=== PATIENT | female | born 1970 | race Hispanic/Latino ===

== ENCOUNTER → 2018-08-30 | Day surgery (SDC) | payer OTHER ==
[~2018-08-30] MED LIST: ALBUTEROL0.63 MG/3 INH; FENTANYL CITRATE/PF 100MCG/2 ML INJ ONE; FLONASE; LASIX20 MG PO; MIDAZOLAM HCL 2 MG/2 ML VIAL ONE; NEXIUM40 MG PO; POTASSIUM CHLO20 ME1 PO; PROPOFOL IV EMULSION 10 MG/ML 50 ML VIAL ONE; SUCRALFATE1 GM PO; VIT D
--- OUTSIDE RECORDS SUMMARY | 2018-08-30 07:12 | XMS REPORT | Clinical Summary ---
Author Author [facility] Organization [facility] Address Unknown Phone Unavailable Care Team Providers Care Electronic Publisher Name Role Phone Elias Su MD PCP Unavailable Allergies Comments Active Allergy Reactions Severity Noted Date "Made me become violent, had to be sedated." Ketorolac Other (See 07/21/2017 Comments) Tramadol Rash Low 07/21/2017 Medications End Date Status Medication Sig Dispensed Refills Start Date Active potassium chloride Take 10 mEq 0 (KLOR-CON M10) 10 MEQ CR by mouth 2 tablet (two) times a day. Active furosemide (LASIX) 20 mg Take 20 mg by 0 tablet mouth daily. Active metFORMIN (GLUCOPHAGE) Take 500 mg 0 500 mg tablet by mouth daily with breakfast. 01/29/2019 Active furosemide (LASIX) 20 mg Take 1 tablet 7 tablet 0 tablet (20 mg total) 8 by mouth daily. 01/29/2019 Active potassium chloride Take 1 tablet 7 tablet 0 (K-DUR,KLOR-CON) 10 MEQ (10 mEq 8 CR tablet total) by mouth 2 (two) times a day. 01/28/2018 Discontinued metoclopramide HCl 10 mg Take 10 mg by 0 tablet,disintegrating mouth 4 (four) times a day. 06/22/2018 naproxen (NAPROSYN) 500 Take 1 tablet 60 tablet 0 MG tablet (500 mg 8 total) by mouth 2 (two) times a day with meals for 30 days. Active Problems Problem Noted Date Acute appendicitis 01/27/2018 Encounters Care Team Description Date Type Specialty Baldomero Garcia DO Abrasion of right knee, initial encounter (Primary Dx); Fall, initial encounter 05/23/2018 Emergency Emergency Medicine Cisco Walton MD 01/27/2018 Anesthesia General Surgery Event Jose Alfredo Winkler MD Appendectomy, Laparoscopic 01/27/2018 Surgery General Surgery Tej Walter MD Roberts, Matthew Thomas, DO Bavare, Arusha Amod, MD Acute appendicitis, unspecified acute appendicitis type (Primary Dx) 01/27/2018 [facility] General Surgery - Encounter 01/28/2018 after 08/29/2017 Immunizations Name Dates Previously Given Next Due Tdap 05/23/2018 Family History Medical History Relation Name Comments Heart murmur Brother Bladder Cancer Father Hypertension Mother Hyperlipidemia Sister Relation Name Status Comments Brother Father Mother Alive Sister Social History Date Tobacco Use Types Packs/Day Years Used Never Smoker Smokeless Tobacco: Never Used Alcohol Use Drinks/Week oz/Week Comments No Sex Assigned at Date Recorded Not on file Industry Job Start Date Occupation Not on file Not on file Not on file Travel End Travel History Travel Start No recent travel history available. Last Filed Vital Signs Time Taken Vital Sign Reading 05/23/2018 1:[address] [employer] [employer] Blood Pressure 128/79 05/23/2018 1:[address] [employer] Pulse 76 05/23/2018 11:30 AM [employer] [employer] Temperature 36.8 C (98.2 F) 05/23/2018 1:[address] [employer] [employer] Respiratory Rate 18 05/23/2018 1:[address] [employer] [employer] Oxygen Saturation 99% - Inhaled Oxygen - Concentration 05/23/2018 11:[address] [employer] [employer] Weight 102 kg (225 lb) 05/23/2018 11:[address] [employer] [employer] Height 154.9 cm (5' 1") 05/23/2018 11:[address] [employer] Body Mass Index 42.51 Plan of Treatment Health Maintenance Due Date Last Done Comments CERVICAL CANCER SCREENING 1993 INFLUENZA VACCINE 02/09/2018 Procedures Comments Procedure Name Priority Date/Time Associated Diagnosis XR TIBIA FIBULA 2 VW STAT 05/23/2018 RIGHT 12:56 [address] [employer] [employer] XR HIPS BILATERAL 2 VIEWS STAT 05/23/2018 12:[address] [employer] [employer] XR ANKLE 3+ VW RIGHT STAT 05/23/2018 12:[address] [employer] [employer] XR KNEE 4+ VW RIGHT STAT 05/23/2018 12:[address] [employer] [employer] POC GLUCOSE Routine 01/28/2018 8:41 PM CDT POC GLUCOSE Routine 01/28/2018 6:33 PM CDT POC GLUCOSE Routine 01/28/2018 11:14 AM CDT ZZESTIMATED GFR Routine 01/28/2018 6:57 AM CDT HC COMPLETE BLD COUNT Routine 01/28/2018 W/AUTO DIFF 6:57 AM CDT HEMOGLOBIN A1C Routine 01/28/2018 6:57 AM CDT LIPID PANEL Routine 01/28/2018 6:57 AM CDT BASIC METABOLIC PANEL Routine 01/28/2018 6:57 AM CDT POC GLUCOSE Routine 01/28/2018 6:14 AM CDT URINE CULTURE Routine 01/27/2018 11:55 PM CDT URINALYSIS SCREEN AND Routine 01/27/2018 MICROSCOPY, WITH REFLEX 11:52 PM CDT TO CULTURE POC GLUCOSE Routine 01/27/2018 9:47 PM CDT SURGICAL PATHOLOGY Routine 01/27/2018 REQUEST 2:53 PM CDT POC GLUCOSE Routine 01/27/2018 2:04 PM CDT ME AN ELECTIVE Routine 01/27/2018 END[address]RACHEAL AIRWAY 1:04 PM CDT Procedure Note - Cisco Walton MD - 01/27/2018 1:04 PM CDT Airway Performed by: CISCO WALTON Authorized by: CISCO WALTON Location: OR Urgency: Elective Difficult Airway: Yes Anesthesio logist: CISCO WALTON Performed by: anesthesio logist Preoxygena marylou with 100% O2: Yes Mask Ventilatio n: Easy mask Final Airway Type: Endotrache al airway Final Endotrache al Airway: ETT Cuffed: Yes Technique Used: Direct laryngosco py Insertion Site: Oral Blade Type: Remberto Laryngosco pe Blade/Vide olaryngosc ope Blade Size: 3 ETT Size (mm): 7.0 Cuff at minimum occlusion pressure: Yes Measured from: Lips ETT to Lips (cm): 22 Placement Verified by: CO2 detection, direct visualizat ion and equal breath sounds Laryngosco pic view: Grade IIb - view of arytenoids or posterior of glottis only Rapid Sequence Induction (RSI): No Modified RSI: No Number of Attempts at Approach: 1 CT ABDOMEN PELVIS W STAT 01/27/2018 CONTRAST 9:23 AM CDT BILIRUBIN DIRECT STAT 01/27/2018 8:15 AM CDT ZZESTIMATED GFR STAT 01/27/2018 8:15 AM CDT HCG QUALITATIVE, SERUM STAT 01/27/2018 SCREEN 8:15 AM CDT LIPASE LEVEL STAT 01/27/2018 8:15 AM CDT COMPREHENSIVE METABOLIC STAT 01/27/2018 PANEL 8:15 AM CDT CBC WITH PLATELET AND STAT 01/27/2018 DIFFERENTIAL 8:15 AM CDT after 08/29/2017 Results * XR Tibia Fibula 2 Vw Right (05/23/2018 12:[address] [employer] [employer]) Narrative Performed At EXAMINATION:XR TIBIA FIBULA 2 VW RIGHT [facility] CLINICAL HISTORY:fallleg pain COMPARISON:None. IMPRESSION: 1.2 view evaluation of the right tibia and fibula demonstrates no evidence to suggest an acute fracture. Alignment is normal and articulation is intact. [facility]-[id number] Procedure Note Hm Interface, Radiology Results Incoming - 05/23/2018 1:19 [address] [employer] [employer] EXAMINATION: XR TIBIA FIBULA 2 VW RIGHT CLINICAL HISTORY: fall leg pain COMPARISON: None. IMPRESSION: 1. 2 view evaluation of the right tibia and fibula demonstrates no evidence to suggest an acute fracture. Alignment is normal and articulation is intact. [facility]-[id number] Performing Organization Address City/State/Zipcode Phone Number [facility] [address] [place] [address] * XR Hips Bilateral 2 Views (05/23/2018 12:56 PM [employer] [employer]) Narrative Performed At EXAMINATION:XR HIPS BILATERAL 2 VIEWS [facility] CLINICAL HISTORY:fall COMPARISON:None. IMPRESSION: 1.The pelvic ring is intact. The hips are symmetric in alignment with mild joint space narrowing and articular sclerosis. Pubic symphysis and sacroiliac joints are patent. No evidence to suggest an acute fracture. [facility]-[id number] Procedure Note Interface, Radiology Results Incoming - 05/23/2018 1:24 PM [employer] [employer] EXAMINATION: XR HIPS BILATERAL 2 VIEWS CLINICAL HISTORY: fall COMPARISON: None. IMPRESSION: 1. The pelvic ring is intact. The hips are symmetric in alignment with mild joint space narrowing and articular sclerosis. Pubic symphysis and sacroiliac joints are patent. No evidence to suggest an acute fracture. [facility]-[id number] Performing Organization Address [facility] HospitalSp[facility] Medical Holdingme Phone Number [facility] [address] [place] [address] * XR Ankle 3+ Vw Right (05/23/2018 12:55 PM [employer] [employer]) Narrative Performed At Examination: XR ANKLE 3VW RIGHT [facility] Clinical history: fallankle pain Comparison: None Impression: 1.There is no fracture or acute osseous pathology. 2. The ankle mortise is within normal limits. [facility]-[id number] Procedure Note Interface, Radiology Results Incoming 05/23/2018 1:06 [address] [employer] [employer] Examination: XR ANKLE 3 VW RIGHT Clinical history: fall ankle pain Comparison: None Impression: 1. There is no fracture or acute osseous pathology. 2. The ankle mortise is within normal limits. [facility]-[id number] Performing Organization Address [facility] Phone Number [facility] [address] [place] [address] * XR Knee 4+ Vw Right (05/23/2018 12:54 PM [employer] [employer]) Narrative Performed At EXAMINATION:XR KNEE 4VW RIGHT [facility] CLINICAL HISTORY:fallknee injury COMPARISON:None. IMPRESSION: 1.There is no evidence of right knee fracture, dislocation, or joint effusion. Bone mineralization is normal. [facility]-[id number] Procedure Note Interface, Radiology Results Incoming - 05/23/2018 1:19 PM [employer] [employer] EXAMINATION: XR KNEE 4 VW RIGHT CLINICAL HISTORY: fall knee injury COMPARISON: None. IMPRESSION: 1. There is no evidence of right knee fracture, dislocation, or joint effusion. Bone mineralization is normal. [facility]-[id number] Performing Organization Address [facility] Phone Number [facility] [address] [place] [address] * POC glucose (01/28/2018 8:41 PM CDT) Only the most recent of 6 results within the time period is included. POC glucose 167 (H) 65 - 100 mg/dL [facility] [place] DEPARTMENT OF Comment: PATHOLOGY AND Meter ID: [id number] GENOMIC MEDICINE Storekeeper Helper: Lilly Hester Performing Organization Address City/[facility] Hospitalcode Phone Number [address] [place] [phone] PATHOLOGY AND GENOMIC MEDICINE * Estimated GFR (01/28/2018 6:57 AM CDT) Only the most recent of 2 results within the time period is included. GFR Non Af Amer >90 mL/min/1.73 m2 [facility] [place] DEPARTMENT OF PATHOLOGY AND GENOMIC MEDICINE GFR Af Amer >90 mL/min/1.73 m2 [facility] [place] DEPARTMENT OF Comment: PATHOLOGY AND Chronic kidney disease: <60 GENOMIC MEDICINE mL/min/1.73m2 Kidney failure: <15 mL/min/1.73m2 The estimated GFR is calculated from the IDMS-traceable Modification of Diet in Renal Disease Equation. The accuracy of the calculation is poor when the creatinine is normal. Calculated values >90 mL/min/1.73m2 are not reported. This equation has not been validated in children (<18 years), women, the elderly (>70 years), or ethnic groups other than Caucasians and Americans. Specimen Plasma specimen Performing Organization Address City/State/[facility] Hospitalcode Phone Number [address] [place] [address] PATHOLOGY AND [employer] MEDICINE * CBC with platelet and differential (01/28/2018 6:57 AM CDT) Only the most recent of 2 results within the time period is included. WBC 7.5 4.2 - 11.0 k/uL [facility] [place] DEPARTMENT OF PATHOLOGY AND GENOMIC MEDICINE RBC 4.20 4.04 - 5.86 m/uL [facility] [place] DEPARTMENT OF PATHOLOGY AND GENOMIC MEDICINE HGB 12.7 11.5 - 15.3 g/dL [facility] [place] DEPARTMENT OF PATHOLOGY AND GENOMIC MEDICINE HCT 39.3 34.0 - 45.0 % [facility] [place] [place] DEPARTMENT OF PATHOLOGY AND GENOMIC MEDICINE MCV 93.6 80.0 - 98.0 fL [facility] [place] DEPARTMENT OF PATHOLOGY AND GENOMIC MEDICINE MCH 30.2 27.0 - 34.0 pg [facility] [place] [place] DEPARTMENT OF PATHOLOGY AND GENOMIC MEDICINE MCHC 32.3 31.5 - 36.5 g/dL [facility] [place] DEPARTMENT OF PATHOLOGY AND GENOMIC MEDICINE RDW - SD 43.8 37.0 - 51.0 fL [facility] [place] DEPARTMENT OF PATHOLOGY AND GENOMIC MEDICINE MPV 10.5 (H) 7.4 - 10.4 fL [facility] [place] DEPARTMENT OF PATHOLOGY AND GENOMIC MEDICINE Platelet count 283 150 - 400 k/uL [facility] [place] [place] DEPARTMENT OF PATHOLOGY AND GENOMIC MEDICINE Nucleated RBC 0.00 /100 WBC [facility] [place] [place] DEPARTMENT OF PATHOLOGY AND GENOMIC MEDICINE Neutrophils 73.2 (H) 36.0 - 66.0 % [facility] [place] [place] DEPARTMENT OF PATHOLOGY AND GENOMIC MEDICINE Lymphocytes 17.2 (L) 24.0 - 44.0 % [facility] [place] [place] DEPARTMENT PATHOLOGY AND GENOMIC MEDICINE Monocytes 7.2 (H) 0.0 - 6.0 % [facility] [place] [place] DEPARTMENT OF PATHOLOGY AND GENOMIC MEDICINE Eosinophils 1.5 0.0 - 6.0 % [facility] PATHOLOGY AND GENOMIC MEDICINE Basophils 0.4 0.0 - 1.2 % [facility] [place] [place] DEPARTMENT PATHOLOGY AND GENOMIC MEDICINE Immature granulocytes 0.5 0.0 - 1.0 % [facility] PATHOLOGY AND GENOMIC MEDICINE Specimen Blood Performing Organization Address City/[facility]/Zipcode Phone Number [place] [phone] PATHOLOGY AND GENOMIC MEDICINE * Hemoglobin A1c (01/28/2018 6:57 AM CDT) Hemoglobin A1C 5.5 4.0 - 6.0 % [facility] [place] [place] DEPARTMENT OF Comment: PATHOLOGY AND GENOMIC MEDICINE Less than 6% - Goal of therapy for Type II Diabetes Less than 7%-Goal of therapy for Type I Diabetes Less than 8%-Accepta ble control for Type I or Type II Diabetes Greater than 8%-Unacceptabl e control; action indicated. ([id number]) Specimen Blood Performing Organization Address City/[facility]/[place] [address] PATHOLOGY AND [employer] [facility] * Lipid panel (01/28/2018 6:57 AM CDT) Cholesterol 159 0 - 199 mg/dL [facility] [place] [place] DEPARTMENT OF PATHOLOGY AND GENOMIC MEDICINE Triglycerides 126 0 - 149 mg/dL [facility] [place] DEPARTMENT OF PATHOLOGY AND GENOMIC MEDICINE HDL cholesterol 32 (L) 40 - 9,999 mg/dL [facility] [place] DEPARTMENT OF PATHOLOGY AND GENOMIC MEDICINE LDL cholesterol 112 (H)Comment: Result 0 - 99 mg/dL [facility] [place] DEPARTMENT OF obtained by direct LDL PATHOLOGY AND measurement GENOMIC MEDICINE Lipid panel See below [facility] [place] [place] DEPARTMENT OF interpretation Comment: PATHOLOGY AND Total Cholesterol GENOMIC MEDICINE (mg/dL) LDL Cholesterol (mg/dL) <200 Desirable <100 Optimal 200-239Borderline -etso442-2 29Near or above optimal >=240High 130-159Borderline- high 160-189High >=190Very high HDL Cholesterol (mg/dL) Triglycerides (mg/dL) <40Low <150 Normal >=60 High 150-199Borderline- high 200-499High >=500Very high Risk Catergories that modify LDL goals. Risk Catergories LDL goal (mg/dL) CHD and CHD risk equivalent <100 (10-year risk >20%) Multiple (2+) risk factors <130 (10-year risk=<20%) 0-1 risk factors <160 (<10-year risk) Defining levels of lipids in metabolic syndrome Triglycerides >=150 mg/dL HDL Cholesterol Men <40 mg/dL Women <50 mg/dL Non-HDL cholesterol is a second target for therapy in persons with high triglycerides (>=200 mg/dL) Specimen Plasma specimen Performing Organization Address City/State/Zipcode Phone Number [place] [phone] [place] [address] PATHOLOGY AND GENOMIC MEDICINE * Basic metabolic panel (01/28/2018 6:57 AM CDT) Sodium 141 135 - 150 mEq/L [facility] [place] [place] DEPARTMENT OF PATHOLOGY AND GENOMIC MEDICINE Potassium 3.6 3.5 - 5.0 mEq/L [facility] [place] [place] DEPARTMENT OF PATHOLOGY AND GENOMIC MEDICINE Chloride 105 98 - 112 mEq/L [facility] [place] [place] DEPARTMENT OF PATHOLOGY AND GENOMIC MEDICINE CO2 27 24 - 31 mmol/L [facility] [place] DEPARTMENT OF PATHOLOGY AND GENOMIC MEDICINE Anion gap 9@ANIO 7 - 15 mEq/L [facility] [place] [place] DEPARTMENT OF PATHOLOGY AND GENOMIC MEDICINE BUN 6 (L) 7 - 18 mg/dL [facility] [place] [place] DEPARTMENT OF PATHOLOGY AND GENOMIC MEDICINE Creatinine 0.60 0.50 - 0.90 mg/dL [facility] [place] [place] DEPARTMENT OF PATHOLOGY AND GENOMIC MEDICINE Glucose 112 (H) 65 - 100 mg/dL [facility] [place] [place] DEPARTMENT OF PATHOLOGY AND GENOMIC MEDICINE Calcium 8.3 8.3 - 10.2 mg/dL [facility] [place] [place] DEPARTMENT OF PATHOLOGY AND GENOMIC MEDICINE Specimen Plasma specimen Performing Organization Address City/[facility] Phone Number [facility] [address] [place] [address] PATHOLOGY AND GENOMIC MEDICINE * Urine culture (01/27/2018 11:55 PM CDT) Urine culture SEE COMMENTComment: [facility] [place] [place] DEPARTMENT OF Bacteriuria screen negative. PATHOLOGY AND GENOMIC MEDICINE Performing Organization Address [facility] Hospitalcode Phone Number [place] [address] [place] [address] PATHOLOGY AND GENOMIC MEDICINE * Urinalysis screen and microscopy, with reflex to culture (01/27/2018 11:52 PM CDT) Specimen site Clean catch [facility] [place] [place] DEPARTMENT OF PATHOLOGY AND GENOMIC MEDICINE Color, UA Straw [facility] [place] [place] DEPARTMENT OF PATHOLOGY AND GENOMIC MEDICINE Appearance, UA Clear [facility] [place] [place] DEPARTMENT OF PATHOLOGY AND GENOMIC MEDICINE Specific gravity, UA 1.012 1.001 - 1.035 [facility] [place] [place] DEPARTMENT OF PATHOLOGY AND GENOMIC MEDICINE pH, UA 5.0 5.0 - 8.5 [facility] [place] [place] DEPARTMENT OF PATHOLOGY AND GENOMIC MEDICINE Protein, UA Negative Negative [facility] [place] [place] DEPARTMENT OF PATHOLOGY AND GENOMIC MEDICINE Glucose, UA Negative Negative [facility] [place] [place] DEPARTMENT OF PATHOLOGY AND GENOMIC MEDICINE Ketones, UA Negative Negative [facility] [place] [place] DEPARTMENT OF PATHOLOGY AND GENOMIC MEDICINE Bilirubin, UA Negative Negative [facility] [place] [place] DEPARTMENT OF PATHOLOGY AND GENOMIC MEDICINE Blood, UA Moderate (A) Negative [facility] [place] [place] DEPARTMENT OF PATHOLOGY AND GENOMIC MEDICINE Nitrite, UA Negative Negative [facility] [place] [place] DEPARTMENT OF PATHOLOGY AND GENOMIC MEDICINE Urobilinogen, UA Negative <2.0 [facility] [place] [place] DEPARTMENT OF PATHOLOGY AND GENOMIC MEDICINE Leukocyte esterase, UA Negative Negative [facility] [place] [place] DEPARTMENT OF PATHOLOGY AND GENOMIC MEDICINE Epithelial cells, UA Many /HPF [facility] [place] [place] DEPARTMENT OF PATHOLOGY AND GENOMIC MEDICINE WBC, UA 2 0 - 5 /HPF [facility] [place] [place] DEPARTMENT OF PATHOLOGY AND GENOMIC MEDICINE RBC, UA 19 (H) 0 - 5 /HPF [facility] [place] [place] DEPARTMENT OF PATHOLOGY AND GENOMIC MEDICINE Bacteria, UA None seen None seen [facility] [place] [place] DEPARTMENT OF PATHOLOGY AND GENOMIC MEDICINE Yeast, UA None seen [facility] [place] [place] DEPARTMENT OF PATHOLOGY AND GENOMIC MEDICINE Yeast with pseudohyphae, None seen [facility] [place] [place] DEPARTMENT OF PATHOLOGY AND GENOMIC MEDICINE Specimen Urine Performing Organization Address City/State/Zipcode Phone Number [facility] [address] [place] [address] PATHOLOGY AND GENOMIC MEDICINE * Surgical pathology request (01/27/2018 2:53 PM CDT) [facility] [place] [place] DEPARTMENT OF PATHOLOGY AND GENOMIC MEDICINE Surgical pathology report See link below for PDF Lab [facility] [place] [place] DEPARTMENT OF Report PATHOLOGY AND GENOMIC MEDICINE Result status This is Final Report to [facility] [place] [place] DEPARTMENT OF [id number] PATHOLOGY AND GENOMIC MEDICINE Performing Organization Address City/State/Zipcode Phone Number [facility] [address] [place] [address] PATHOLOGY AND GENOMIC MEDICINE * CT Abdomen Pelvis W Contrast (01/27/2018 9:23 AM CDT) Narrative Performed At EXAMINATION:CT ABDOMEN PELVIS W CONTRAST [facility] CLINICAL HISTORY:Abdominal pain. TECHNIQUE: Multi-detector computed axial tomography (CAT) of the abdomen and pelvis was performed with IV iodinated contrast. Sagittal and coronal computerized reformatted images were created at a workstation and archived for review. DOSE REDUCTION: CT imaging was performed with iterative reconstruction technique and/or automated exposure control to reduce radiation dose. COMPARISON:CT abdomen and pelvis May 28, 2016. IMPRESSION: 1.There are findings concerning for tip appendicitis. Clinical correlation is recommended. FINDINGS: ABDOMEN: 2.9 cm cyst of the posterior interpolar right kidney. Mild cortical scarring of the kidneys. Liver, spleen, pancreas, and adrenals are unremarkable. Gallbladder is normal and the pancreaticobiliary system is nondistended. The distal 1.7 cm of the appendix is thickened measuring 9 mm, and there is faint periappendiceal fat stranding. Findings are concerning for tip appendicitis in the appropriate clinical setting. Recommended. Remainder of the GI tract is unremarkable. Aorta is nonaneurysmal. Superior mesenteric artery and portal venous system are patent. No adenopathy, free fluid, or fluid collection. PELVIS: No solid mass, adenopathy, free fluid, or fluid collection. Patient is status-post hysterectomy. 1.8 cm left paraovarian cyst. Right adnexa unremarkable. Urinary bladder is normal. Tiny soft tissue density nodule located anteriorly within the peritoneum is unchanged from May 28, 2016 and therefore benign. OTHER: Heart is normal in size. Lung bases are clear. No pericardial or pleural effusion. Bone island in the right anterior fifth rib. No significant degenerative changes in the spine. Subcutaneous stranding in the anterior abdominal wall subcutaneous tissues may be postoperative scarring. [facility]-[id number] Procedure Note Interface, Radiology Results Incoming - 01/27/2018 9:39 AM CDT EXAMINATION: CT ABDOMEN PELVIS W CONTRAST CLINICAL HISTORY: Abdominal pain. TECHNIQUE: Multi-detector computed axial tomography (CAT) of the abdomen and pelvis was performed with IV iodinated contrast. Sagittal and coronal computerized reformatted images were created at a workstation and archived for review. DOSE REDUCTION: CT imaging was performed with iterative reconstruction technique and/or automated exposure control to reduce radiation dose. COMPARISON: CT abdomen and pelvis May 28, 2016. IMPRESSION: 1. There are findings concerning for tip appendicitis. Clinical correlation is recommended. FINDINGS: ABDOMEN: 2.9 cm cyst of the posterior interpolar right kidney. Mild cortical scarring of the kidneys. Liver, spleen, pancreas, and adrenals are unremarkable. Gallbladder is normal and the pancreaticobiliary system is nondistended. The distal 1.7 cm of the appendix is thickened measuring 9 mm, and there is faint periappendiceal fat stranding. Findings are concerning for tip appendicitis in the appropriate clinical setting. Recommended. Remainder of the GI tract is unremarkable. Aorta is nonaneurysmal. Superior mesenteric artery and portal venous system are patent. No adenopathy, free fluid, or fluid collection. PELVIS: No solid mass, adenopathy, free fluid, or fluid collection. Patient is status-post hysterectomy. 1.8 cm left paraovarian cyst. Right adnexa unremarkable. Urinary bladder is normal. Tiny soft tissue density nodule located anteriorly within the peritoneum is unchanged from May 28, 2016 and therefore benign. OTHER: Heart is normal in size. Lung bases are clear. No pericardial or pleural effusion. Bone island in the right anterior fifth rib. No significant degenerative changes in the spine. Subcutaneous stranding in the anterior abdominal wall subcutaneous tissues may be postoperative scarring. [facility]-[id number] Performing Organization Address City/State/Zipcode Phone Number [facility] [address] [place] [address] * hCG qualitative, serum screen (01/27/2018 8:15 AM CDT) hCG qualitative, serum Negative [facility] [place] DEPART[place] OF Comment: PATHOLOGY AND The manufacturers stated [employer] MEDICINE sensitivity of HcG test for serum is >/=10 mIU/ml and urine is >/=20mIU/ml. Specimen Blood Performing Organization Address [facility] Phone Number [facility] [place] [place] [address] PATHOLOGY AND GENOMIC MEDICINE * Lipase level (01/27/2018 8:15 AM CDT) Lipase 27 13 - 60 U/L [facility] [place] DEPARTMENT OF PATHOLOGY AND GENOMIC MEDICINE Specimen Plasma specimen Performing Organization Address [facility] [place] [address] PATHOLOGY AND GENOMIC MEDICINE * Bilirubin direct (01/27/2018 8:15 AM CDT) Bilirubin direct <0.2 0.0 - 0.4 mg/dL [facility] [place] DEPARTMENT OF PATHOLOGY AND GENOMIC MEDICINE Specimen Plasma specimen Performing Organization Address [facility] [place] [address] PATHOLOGY AND GENOMIC MEDICINE * Comprehensive metabolic panel (01/27/2018 8:15 AM CDT) Sodium 138 135 - 150 mEq/L [facility] [place] DEPARTMENT OF PATHOLOGY AND GENOMIC MEDICINE Potassium 3.9 3.5 - 5.0 mEq/L [facility] [place] DEPARTMENT OF PATHOLOGY AND GENOMIC MEDICINE Chloride 100 98 - 112 mEq/L [facility] [place] [place] DEPARTMENT OF PATHOLOGY AND GENOMIC MEDICINE CO2 22 (L) 24 - 31 mmol/L [facility] [place] [place] DEPARTMENT OF PATHOLOGY AND GENOMIC MEDICINE Anion gap 16@ANIO (H) 7 - 15 mEq/L [facility] [place] [place] DEPARTMENT OF PATHOLOGY AND GENOMIC MEDICINE BUN 10 7 - 18 mg/dL [facility] [place] [place] DEPARTMENT OF PATHOLOGY AND GENOMIC MEDICINE Creatinine 0.50 0.50 - 0.90 mg/dL [facility] [place] [place] DEPARTMENT OF PATHOLOGY AND GENOMIC MEDICINE Glucose 133 (H) 65 - 100 mg/dL [facility] [place] [place] DEPARTMENT OF PATHOLOGY AND GENOMIC MEDICINE Calcium 9.3 8.3 - 10.2 mg/dL [facility] [place] [place] DEPARTMENT OF PATHOLOGY AND GENOMIC MEDICINE Protein 8.0 6.3 - 8.3 g/dL [facility] [place] [place] DEPARTMENT OF PATHOLOGY AND GENOMIC MEDICINE Albumin 4.3 3.5 - 5.0 g/dL [facility] [place] [place] DEPARTMENT OF PATHOLOGY AND GENOMIC MEDICINE A/G ratio 1.2 0.7 - 3.8 [facility] [place] [place] DEPARTMENT OF PATHOLOGY AND GENOMIC MEDICINE Alkaline phosphatase 88 0 - 104 U/L [facility] [place] [place] DEPARTMENT OF PATHOLOGY AND GENOMIC MEDICINE AST 31 10 - 35 U/L [facility] [place] DEPARTMENT OF PATHOLOGY AND GENOMIC MEDICINE ALT 22 5 - 50 U/L [facility] [place] [place] DEPARTMENT OF PATHOLOGY AND GENOMIC MEDICINE Total bilirubin 0.3 0.2 - 1.2 mg/dL [facility] [place] [place] DEPARTMENT OF PATHOLOGY AND GENOMIC MEDICINE Specimen Plasma specimen Performing Organization Address City/State/Zipcode Phone Number [facility] – [place] [place] DEPARTMENT OF [address] [place] [address] PATHOLOGY AND GENOMIC MEDICINE after 08/29/2017 Insurance Payer Benefit Subscriber ID Type Phone Address Plan / Group [facility] xxxxxxxxx HMO/PPO THCARE CHOICE/CHO ICE + ([place]) [place] [address] Advance Directives Patient has advance care planning documents on file. For more information, bhavani gomez contact: Zack Nunes [address] [place] [address]
--- OUTSIDE RECORDS SUMMARY | 2018-08-30 07:12 | XMS REPORT ---
Author Author Admin, Rapelje Organization [facility] Address [address] [place] [address] Phone Allergies, Adverse Reactions, Alerts Allergy Name Reaction Description Start Date Severity Status Provider TORADOL Pt states her mood changes and goes crazy Mild Active Makeda Collins MD Conditions or Problems Problem Name Problem Code Onset Date Status Entry Date Provider Comment Standard Description Annotate Abdominal pain, right upper quadrant 789.01 Active Makeda Collins MD Abdominal pain, right upper quadrant Back pain, chronic 724.5 Active Makeda Collins MD Backache, unspecified Accident as a child, pallet fell on her back MORBID OBESITY Active Makeda Collins MD Morbid obesity Numbness tingling bilat legs below knees 782.0 Active Makeda Collins MD Disturbance of skin sensation Accident as child, pallet fell on back Medication List Medication Instructions Start Date Stop Date Generic Name NDC Status Provider Patient Instruction GABAPENTIN 300 MG ORAL CAPSULE 1 by mouth three times a day GABAPENTIN 95233669220 Active Makeda Collins MD Active METOCLOPRAMIDE HCL 10 MG ORAL TABLET 1 tablet Three Times a Day As Needed METOCLOPRAMIDE HCL 85918213171 Active Makeda Collins MD Active NAPROXEN 500 MG ORAL TABLET 1 by mouth twice a day as needed for pain and inflammation NAPROXEN 19500002115 Active Makeda Collins MD Active Encounters Date Encounter Provider Code Facility 13:12:01 [employer] New Patient Detailed - [id number] Makeda Collins MD [id number] [facility]
[2018-08-30 12:45] VITALS: BP 109/66
== END | disposition home or self-care (01) ==
LOC: OR 07:10
PROVIDERS: ATTEND Internal Medicine Gastroenterology
DX: R10.13 Epigastric pain (principal); K31.9 Disease of stomach and duodenum, unspecified; K21.9 Gastro-esophageal reflux disease without esophagitis; K62.89 Other specified diseases of anus and rectum; Z80.0 Family history of malignant neoplasm of digestive organs; E11.9 Type 2 diabetes mellitus without complications; Z79.84 Long term (current) use of oral hypoglycemic drugs; J45.909 Unspecified asthma, uncomplicated; R00.2 Palpitations; M79.89 Other specified soft tissue disorders; Z79.1 Long term (current) use of non-steroidal anti-inflammatories (NSAID)
CPT/HCPCS: 43239; J2250; J2704; 45378